=== PATIENT | female | born 1950 | race Caucasian/White ===

== ENCOUNTER → 2021-01-18 09:00 | Outpatient (CLI) | payer MEDICARE, SELFPAY ==
--- NOTE | 2021-01-18 | DI.ECHO.S_ITS ---
[place] [facility]---------+ [facility] +---------+ : : [address] : [address] : [address] : : : : [id number] : : : : Phone: [phone]---------+ Echocardiogram Report + + :Name: NNAMDI NICE Study Date: 01/18/2021 Height: 67 in : :[facility] ReadingLocation: Weight: 129 lb : : Gender: Female BSA: 1.7 m2 : :: 1950 Age: 70 yrs BP: 131/79 mmHg: :Reason For Study: Pericardial Effusion : :Ordering Physician: Skip : :Tea Herrera Performed By: Fili Garcia : :Referring: SKIP HERRERA : + + Interpretation Summary 1) Normal left ventricular thickness, size, wall motion, and systolic function (EF 55-60%). 2) Normal right ventricular size and function. 3) No significant valvular abnormalities. 4) There is a small to moderate pericardial effusion noted. No Echo/doppler evidence of tamponade. 6) Compared to the Echo done 08/31/2019, no significant change. Procedure: A two-dimensional transthoracic echocardiogram with color flow and Doppler was performed. The study quality was technically adequate. Comparison is made with the echocardiogram of 08/31/2019. The patient was in sinus rhythm with heart rates between 57-67 bpm during the exam. Left Ventricle: The left ventricle is normal in size and wall thickness. Left ventricular systolic function is normal. The ejection fraction is estimated to be 55-60%. There are no focal wall motion abnormalities. Diastolic parameters suggest probable normal left ventricular diastolic function and normal filling pressures. Right Ventricle: The right ventricle is normal in size and function. Atria: Both atria are normal in size. There is no Doppler evidence for an interatrial shunt. Mitral Valve: The mitral valve leaflets appear mildly thickened, but open well. There is mild mitral regurgitation. Aortic Valve: The aortic valve is normal in structure and function. There is no aortic valve stenosis. No aortic regurgitation is present. Tricuspid Valve: The tricuspid valve is normal in structure and function. There is mild tricuspid regurgitation. The right ventricular systolic pressure is estimated to be at least 37 mmHg based on an estimated right atrial pressure of 8 mm Hg. Pulmonic Valve: The pulmonic valve is normal in structure and function. There is mild pulmonic regurgitation. Great Vessels: The aortic root is normal size. The dimensions of the ascending aorta are normal. The IVC is dilated (diameter is greater than 2.1 cm) yet it collapses greater than 50% with a sniff. This suggests a right atrial pressure of 8 mm Hg. Pericardium/ Pleura There is a small to moderate pericardial effusion noted. There are no echocardiographic indications of cardiac tamponade. There is no pleural effusion. MMode/2D Measurements & Calculations LVIDd: 4.4 cm LVOT diam: 2.0 cm LVIDs: 2.8 cm Ao root diam: 3.1 cm FS: 36.6 % asc Aorta Diam: 3.1 cm IVSd: 0.70 cm LVPWd: 0.78 cm LV haile. diameter/BSA (cm/m^2): 2.6 LV sys. diameter/BSA (cm/m^2): 1.7 LA A2 area: 16.0 cm2 RA area: 17.4 cm2 LA A4 area: 12.0 cm2 IVC diam: 2.3 cm LA length (vol): 4.8 cm LA vol: 34.0 ml LA vol index: 20.2 ml/m2 RVD1 (basal): 3.1 cm TAPSE: 2.8 cm Doppler Measurements & Calculations Ao V2 max: 104.7 cm/sec LVOT Max Cristino: 100.4 cm/sec Ao V2 mean: 75.0 cm/sec LV V1 max P.0 mmHg Ao max P.4 mmHg LV V1 VTI: 21.8 cm Ao mean P.5 mmHg SHUN(I,D): 2.7 cm2 Ao V2 VTI: 25.1 cm SHUN(V,D): 3.0 cm2 sev ratio: 0.87 SHUN indexed to BSA (cm^2/m^2): 1.6 MV E max cristino: 88.0 cm/sec TR max cristino: 267.3 cm/sec MV A max cristino: 56.7 cm/sec TR max P.6 mmHg MV E/A: 1.6 PA V2 max: 81.1 cm/sec Med Peak E' Cristino: 10.2 cm/sec PA V2 mean: 59.8 cm/sec E/E' med: 8.6 PA mean P.6 mmHg Lat Peak E' Cristino: 10.0 cm/sec PA pr(Accel): 42.7 mmHg E/E' lat: 8.8 E/e' average: 8.7 MV dec time: 0.18 sec SV(LVOT): 68.4 ml Reading Physician:01:43 PM
== END ==
PROVIDERS: PCP Nurse Practitioner Family; Referring Provider Internal Medicine Cardiovascular Disease; Visit Provider Internal Medicine Cardiovascular Disease
DX: I08.1 Rheumatic disorders of both mitral and tricuspid valves (principal); I31.3 Pericardial effusion (noninflammatory)
CPT/HCPCS: 93306